=== PATIENT | female | born 1950 | race African-American/Black ===

== ENCOUNTER 2023-03-26 10:17 | Emergency (ER) | payer BC ==
[~2023-03-26] VITALS: Ht 162.6 cm; Wt 59.0 kg
[2023-03-26 10:31] VITALS: O2SAT 98
[2023-03-26] MEDS ORDERED: TRAM-529 MT (14:27)
[2023-03-26 14:42] VITALS: BP 155/64; PULSE 64; RESP 18; TEMP 98.2
== END 2023-03-26 14:44 | disposition home or self-care (01) ==
LOC: ER 10:17
DX: M25.562 Pain in left knee (principal); M25.561 Pain in right knee; M17.12 Unilateral primary osteoarthritis, left knee; Z88.6 Allergy status to analgesic agent
CPT/HCPCS: 73562; 99283